=== PATIENT | male | born 2000 | race Caucasian/White ===

== ENCOUNTER 2024-06-04 09:26 | Day surgery (SDC) | payer SELFPAY ==
[2024-06-04] VITALS (14 sets, daily range): BP systolic 97–110; BP diastolic 50–71; PULSE 58–74; RESP 14–16; TEMP 36.2–36.8; O2SAT 94–100; BMI 23.0
--- NOTE | 2024-06-04 09:38 | PRE.ANES_ITS ---
ASA Classification* ASA Classification ASA Classification: 2 Assessment & Plan Anesthesia* Anesthesia Assessment Anesthesia Assessment: Discussed sedation and/or anesthesia options, risks, benefits, and alternatives with patient/parents/legal guardian/POA. Questions invited. The patient/parents/legal guardian/POA seems to understand and agrees to proceed with anesthesia plan. Reviewed the physical assessment, medical history, allergy history and patient home medications list prior to surgery/procedure/anesthetic and documented any changes. Performed airway and anesthesia risk assessments. 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 When Was Last Pacemaker Check QUESTION #4 FULL TEXT: You/Your Family Experience fever (hyperthermia) with Anesthesia Last Oral Intake Last Oral intake: Last Oral Intake NPO since Meds taken in AM with sips of water? Meds patient instructed to take am of surgery PONV PONV - accounts receivable specialist: PONV - accounts receivable specialist Female No 05/21/24 11:18 HX of Motion Sickness No 05/21/24 11:18 HX of N/V After Surgery No 05/21/24 11:18 Non-Smoker Yes 05/21/24 11:18 Duration of Surgery greater Yes 05/21/24 11:18 than 60 minutes Number of Risk Factors 2 05/21/24 11:18 PONV Score Moderate Risk 05/21/24 11:18 Height & Weight Height & Weight: Anesthesia: Height & Weight Height 5 ft 11 in 04/19/24 15:37 Respiratory Assessment Respiratory Assessment - accounts receivable specialist: Respiratory Tract Infection Hx - accounts receivable specialist Hx Respiratory Tract Infection No 05/21/24 11:18 STOP Sleep Apnea STOP Sleep Apnea - accounts receivable specialist: STOP Sleep Apnea - accounts receivable specialist Hx Hypertension No 05/21/24 11:18 Hx Sleep Apnea No 05/21/24 11:18 CPAP BIPAP Do you snore loudly (louder No 05/21/24 11:18 than talking or can be heard Do you often feel tired/ No 05/21/24 11:18 fatigued/ sleepy during daytime? Has anyone observed you stop No 05/21/24 11:18 breathing during sleep? STOP Results Negative 05/21/24 11:18 QUESTION #5 FULL TEXT : Do you snore loudly (louder than talking or can be heard through closed doors)? 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 Specify any problems Hx of Preganancy in last 3 N/A 05/21/24 11:18 Months Nurse Filling Out Transfusion DSCHRIBER 05/21/24 11:18 & Questions: Date: 05/21/24 05/21/24 11:18 Time: 11:20 05/21/24 11:18 Patient unable to answer at this time (ie. confused, unrespo /Reproduction History /Reproductive History - accounts receivable specialist: /Reproductive Hx- accounts receivable specialist Hx Now No 05/21/24 11:18 Gestational Age (in weeks): EDC: Hx Hx Para Hx Section SAB No 05/21/24 11:18 Active Medications Active Medications: Current Medications Generic Name Dose Route Start Last Admin Trade Name Freq PRN Reason Stop Dose Admin Cefazolin Sodium 2 gm/ N/A 20 mls @ 400 mls/hr 06/04/24 11:00 IV 06/04/24 11:02 PREOP ONE [facility] Medical History Loss of consciousness Constipation Non-smoker Leg cramps History of edema History of pain when walking Acute lateral meniscus tear of right knee Hx of head injury Home Medications ?Medication ?Instructions ?Recorded ?Last Taken ?Type NK 04/19/24 Unknown History Allergy/AdvReac Type Severity Reaction Status Date / Time No Known Allergies Allergy Verified 05/21/24 11:16 Social History Smoking Status: Never smoker alcohol intake: never Review of Systems (Anesthesia) ROS Narrative System reviewed and no additional complaints, except as documented.
[2024-06-04] MEDS: 0.9% Normal Saline (1000mL) 1,000 ML 15 ML IV (09:50)
--- NOTE | 2024-06-04 10:37 | HP.PCM_ITS ---
HPI - General HPI Narrative BO SINGLETON, is a 24 M who presents for a right knee arthroscopy, lateral meniscus repair, possible partial meniscectomy. No changes to history and physical exam. Right knee marked. Risks alternatives benefits postoperative instructions and narcotic counseling given. Patient understands no further questions or concerns. has a benign appearing prepatellar bursitis, but will no preclude surgery. was kneeling recently. MR#: [id number] Acct: [id number] Name: BO SINGLETON Rep #: [id number] : 2000 Provider: Dr. Estuardo Last MD Age/Sex: 24/M Location: [facility] [email or web address] Status: Signed Intake Vital Signs 04/19/2514:37 Height 5 ft 11 in Weight: 165 lb 4 oz BMI 23.0 Intake Visit Reasons: RIGHT KNEE Chief Complaint: injury 4 weeks ago, torn meniscus Is patient in pain?: Yes Pain scale (1-10): 7 Allergies No Known Allergies Allergy (Unverified 04/19/24 15:37) Medications ?Medication ?Instructions ?Recorded ?Confirmed ?Type NK 04/19/24 04/19/24 History PFSH Medical History (Updated 04/19/24 @ 16:01 by Estuardo Last MD) Acute lateral meniscus tear of right knee Hx of head injury Social History (Updated 04/19/24 @ 15:38 by Evelyne Pollack) Smoking Status: Never smoker alcohol intake: never HPI RIGHT KNEE Details: This documentation accurately reflects the service provided and the decisions made by me, Dr. Estuardo Last MD 04/19/24 [id number]. Part of today?s visit was documented by [ ], acting as scribe. BO SINGLETON is a 24 year old M here today for R knee injury. 4 weeks ago. was told LM tear. twisted. there was a pop. jumped down from 4 feet truss. swelling. pain underneath and lateral side. Patient has quite an active lifestyle well- managed and played hockey likes to play pickle ball. The recent hockey game really flared it up and cause more swelling. The patient feels like the knee has been giving way. There is mostly pain on the lateral side. Ortho Exam General General: Yes no acute distress Neurologic: Yes alert and Yes oriented x3 Psychologic: Yes reasonable and appropriate Right Knee Skin/Wound: Yes CDI, No erythema, No ecchymosis and Yes swelling 1+: Effusion Examination: No Med jt line tenderness, Yes Lat jt line tenderness, No TTP inf pole patella, No Crepitus, Yes Pain with flexion, Yes Monalisa's Test, No TTP Patellar tendon, No TTP Tibial tubercle, No TTP Pes Anserine and No Illiotibial band tenderness Quad Atrophy: No Stability: NML: Anterior Drawer, NML: Allen, NML: Posterior Drawer, NML: Valgus 0, NML: Valgus 30, NML: Varus 0, NML: Varus 30, NML: Dial 90 and NML: Dial 30 Patella Translation: 2 Apprehension with Lateral Translation: No Patellar Tilt Normal: Yes Patella Grind: No KNEE: NVI, normal gait, normal alignment, LJ line pain. nvi. rom 0-120. Left Knee Patella Translation: 2 Supplemental Info I independently reviewed the imaging. Concur with radiologist report. MRI report from 04/07/2024 radiologist impression moderate joint effusion and diffuse capsular edema/synovitis. Vertical tear/parrot-beak tear body of the lateral meniscus. Coding Level of Care Code Off vis,new,level 3 Diagnoses Acute lateral meniscus tear of right knee S83.281A Assessment and Plan Assessment and Plan (1) Acute lateral meniscus tear of right knee: Status: Acute Plan: 24-year-old man with an acute right knee lateral meniscus tear. I discussed the diagnosis prognosis different treatment options available with the patient including but not limited to rest ice anti-inflammatories nonoperative management doing nothing bracing taping strapping as well as surgical management which would be in the form of a right knee arthroscopy, lateral meniscus repair, possible partial meniscectomy. 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 I let the patient know that this would be 6 weeks with the brace and crutches in 3 to 4 months before returning back to heavy manual labor or other sports. The patient understands there is a risk of osteoarthritis long-term as well as further propagation or worsening of the tear without surgery. Patient understands signed the consent form for surgery and he would like a crowell pay option as well. Pros and cons risks and benefits were discussed with the patient including but not limited to infection, pain, stiffness, bleeding, damage to surrounding structures, neurovascular injury, recurrence or retear, failure or wear of hardware or fixation, instability, fracture, deep vein thrombosis and pulmonary embolism, anesthetic risks, , patient dissatisfaction, need for further s urgery and other risks. Patient understood and wished to proceed with surgery, and signed the informed consent documentation. [facility] Medical History Loss of consciousness Constipation Non-smoker Leg cramps History of edema History of pain when walking Acute lateral meniscus tear of right knee Hx of head injury Home Medications ?Medication ?Instructions ?Recorded ?Last Taken ?Type NK 04/19/24 Unknown History Allergy/AdvReac Type Severity Reaction Status Date / Time No Known Allergies Allergy Verified 06/04/24 10:13 Social History Smoking Status: Never smoker alcohol intake: never Vital Signs Vital Signs Vital Signs: 06/04/24 10:14 06/04/24 10:14 Temperature 98.0 F Temperature Source Temporal Pulse Rate 60 Respiratory Rate 16 Respiratory Pattern Normal Blood Pressure 110/66 Blood Pressure Mean 80 Blood Pressure Source Monitor Blood Pressure Position Semi-Fowlers Blood Pressure Location Left Arm Pulse Ox 100 Oxygen Delivery Method Room Air Weight Weight: 160 lb 7.944 oz Body Mass Index (BMI) 23.0
--- NOTE | 2024-06-04 10:37 | PCM.OPRPT ---
Problems Associated Problem List Diagnoses (1) Acute lateral meniscus tear of right knee: Operative Report (Standard) Operative Information RN Documented Start/Stop Times: Operation Date: 06/04/24 11:00 Case Time Into Pre-Op 06/04/24 09:45
[2024-06-04] MEDS: Cefazolin 2 GM in Syringe IV (11:14)
[2024-06-04] MEDS: Epinephrine (1 mg/ml) 1 MG/ML VIAL (11:34)
[2024-06-04] MEDS: Bupivacaine 0.25% 30 ML Vial (11:57)
--- NOTE | 2024-06-04 12:05 | PCM.OPRPT ---
Problems Associated Problem List Diagnoses (1) Acute lateral meniscus tear of right knee: Procedures Musculoskeletal [id number]-[id number]: Other Procedure See Report Operative Report (Standard) Operative Information Date of Procedure: 06/04/24 Pre-Operative Diagnosis: Right knee lateral meniscus tear Post-Operative Diagnosis: Same Surgery/Procedure Performed: Right knee arthroscopy partial lateral meniscectomy and lateral meniscus repair medical social worker: No Type of Anesthesia: General and Local RN Documented Start/Stop Times: Operation Date: 06/04/24 11:00 Case Time Into Pre-Op 06/04/24 09:45 Out of Pre-Op 06/04/24 11:01 Anesthesia Start 06/04/24 11:14 Into Room 06/04/24 11:14 Procedure Start 06/04/24 11:34 Procedure End 06/04/24 12:01 Procedure Start Time: 11:34 Procedure Stop Time: 12:01 Select all DRAINS/GRAFTS/IMPLANTS that apply: Implanted device Implanted device details: arthrex fiber stitch all inside meniscus implants x 2 Estimated Blood Loss: 25 Specimen collected: No Description of surgery: Patient brought to the operating room theater. Placed supine on the table. General anesthesia induced. 2 g IV Ancef administered prior to the start of the case. All bony prominences padded. SCDs on the legs. Tourniquet to the right thigh appropriately padded. Stress position with the patient's right side. Then prepped and draped in the usual sterile fashion with chlorhexidine-based prep solution allowing over 3 minutes drying time prior to draping. Preoperative timeout performed to confirm the site patient and the surgery. Began by elevating the limb inflated the tourniquet to 250 mmHg. Made a small stab incision over the anterior aspect of the knee to drain out what appeared to be a hemorrhagic bursitis. I then made anterolateral and anteromedial arthroscopy portals did a full diagnostic arthroscopy. Cartilage in all 3 compartments was normal. Normal ACL and PCL. Medial meniscus appeared normal stable to probing the meniscus roots on both sides were normal stable to probing. Lateral compartment - there was indeed complex parrot-beak tear with some vertical component in the mid aspect of the lateral meniscus. I used arthroscopic biters and shaver instruments to remove a flipped fragment from below the joint line. I debrided this to gentle smooth stable margins. There was increased mobility of the meniscus in that area more than what I would expect at the popliteal hiatus therefore elected to do a repair. I used meniscus rasp along the capsule. I then placed 2 vertical mattress all inside Arthrex fiber stitch meniscus repair devices just anterior and posterior to the segment of mobility. I then probed this section sutures were cut short, this was stable and solid to probing arthroscopy pictures taken and saved onto the system. Case terminated tourniquet let down and hemostasis achieved. Wounds cleaned with wet dry dressing. Portal sites closed with 3-0 Monocryl suture in the anterior stab incision left open because there is more drainage. Steri-Strips followed by Adaptic 4 x 4 gauze ABD dressing with Naseem wrap and a hinged knee brace locked in full extension was then placed. Patient woken up from the general anesthetic transferred off the operating table taken postanesthetic care unit in stable condition. All sponge needle instrument counts were correct no complications. Plan to the patient weightbearing as tolerated in full extension in the brace with crutches for for 6 weeks and passive range of motion only with physical therapy 0 to 90 degrees. Follow-up in the office in within 2 weeks time discharge home according to day surgery criteria and will use aspirin twice daily for VTE prophylaxis. CPT 92281, 39944 Surgical Findings: as above Complications Complications: No Admit VTE Documentation VTE Present on Admission: No VTE Mechan Device Prophylaxis: SCD's VTE Pharm Prophylaxis ordered?: Yes
--- NOTE | 2024-06-04 12:11 | DCINST_ITS ---
Discharge Instructions Diet Discharge Diet: No restrictions Activity Discharge Activity: Use Crutches Ice area for (Minutes): 10 Weight Bearing Status: Full weight bearing (only with brace fully straight 6 weeks) Keep extremity elevated above heart level: Operative Extremity Additional Activity Instructions:: ok for ankle pumps 4x/day Dressing / Incision Call your doctor if your incision/area has: Continuous Slow Oozing, Sudden Increased Bleeding, Increased Pain/ Swelling, Increased Redness, Foul Smelling Discharge and Swelling at the incision site Call your doctor if you observe: Fever of 101 or Higher, Coldness, Increased Pain and Numbness or Tingling Change Dressing in: leave in place till F/U Cleanse incision/area with: Do not get Incision Wet Follow Up Care Please Follow Up With: Estuardo Last MD When: within 2 weeks Test Results: Test results from this visit will be discussed in further detail at your follow- up appointment, if applicable. Discharge Plan Admission Attending Provider: Estuardo Last Primary Care Provider: Alex Barnard Instructions Patient Instructions: After Knee Arthroscopy Print Language: Togolese Discharge Orders/Prescriptions Prescriptions: New oxycodone-acetaminophen [Endocet] 5-325 mg tablet 1 tab PO Q4H MDD 6 PRN (Reason: pain) 3 Days Qty: 14 0RF aspirin 81 mg tablet,chewable 81 mg PO BID MDD 2 30 Days Qty: 60 0RF Referrals / Follow Up: Alex Barnard MD [Primary Care Provider] - Disposition Disposition (needs filled in before D/C Order can be placed): Home, Self Care
--- NOTE | 2024-06-04 12:15 | PCM.POST.ANE ---
Anesthesia: Postop Eval I Current Vital Signs Temperature: 98.2 F Pulse Rate: 65 Blood Pressure: 100/50 Respiratory Rate: 16 Pulse Ox: 96 Assessment Airway patent: Yes Spontaneous unlabored respirations: Yes nausea: No Vomiting: No Anesthesia Complication: No Fluid Hydration Crystalloid volume administer (ml): 1,200 Total IV fluid infused: 1,200 Progress Note Anesthesia document: Postop Eval 1 completed: Yes
--- NOTE | 2024-06-04 14:51 | POSTOPAN2_ITS ---
Anesthesia Postop Eval I Sum Postop Eval Completion status Anesthesia document: Postop Eval 1 completed: Yes Anesthesia Postop Eval I Summary Anesthesia Postop Eval I Summary: Anesthesia Postop Eval I: Assessment Summary Airway patent Yes 06/04/24 12:15 [email or web address] [email or web address] Spontaneous unlabored Yes 06/04/24 12:15 KITCHEN [email or web address] respirations Mental status nausea No 06/04/24 12:15 KITCHEN [email or web address] Vomiting No 06/04/24 12:15 [email or web address] [email or web address] Anesthesia Postop Eval I: Fluid Summary Crystalloid volume administer 1,200 06/04/24 12:15 [email or web address] [email or web address] (ml) Colloids volume administered ( ml) Blood Product volume administered (ml) Total IV fluid infused 1,200 06/04/24 12:15 KITCHEN [email or web address] Anesthesia Postop Eval I: Summary Notes Anesthesia Complication No 06/04/24 12:15 [email or web address] [email or web address] Anesthesia Complication Comment: Post-operative progress note Anesthesia: Postop Eval II Evaluation Mental status: Awake Pain Level: 0 nausea: No Vomiting: No
--- NOTE | 2024-06-04 14:51 | PCM.POSTANE2 ---
Anesthesia Postop Eval I Sum Postop Eval Completion status Anesthesia document: Postop Eval 1 completed: Yes Anesthesia Postop Eval I Summary Anesthesia Postop Eval I Summary: Anesthesia Postop Eval I: Assessment Summary Airway patent Yes 06/04/24 12:15 WORK FROM HOME.[email or web address] Spontaneous unlabored Yes 06/04/24 12:15 WORK FROM HOME.[email or web address] respirations Mental status nausea No 06/04/24 12:15 WORK FROM HOME.[email or web address] Vomiting No 06/04/24 12:15 WORK FROM HOME.[email or web address] Anesthesia Postop Eval I: Fluid Summary Crystalloid volume administer 1,200 06/04/24 12:15 WORK FROM HOME.[email or web address] (ml) Colloids volume administered ( ml) Blood Product volume administered (ml) Total IV fluid infused 1,200 06/04/24 12:15 WORK FROM HOME.[email or web address] Anesthesia Postop Eval I: Summary Notes Anesthesia Complication No 06/04/24 12:15 WORK FROM HOME.[email or web address] Anesthesia Complication Comment: Post-operative progress note Anesthesia: Postop Eval II Evaluation Mental status: Awake Pain Level: 0 nausea: No Vomiting: No
[2024-06-04] MEDS: HYDROcodone Bitartrate/Apap 5/325 Tablet PO (15:41)
--- NOTE | 2024-06-04 17:48 | SUR.PHASEII ---
time in phase 2 extended d/t waiting for ride
== END 2024-06-04 17:48 | disposition home or self-care (01) ==
LOC: SDC 09:33 → AC 09:39
PROVIDERS: PCP Family Medicine; Referring Provider Orthopaedic Surgery Sports Medicine; Visit Provider Orthopaedic Surgery Sports Medicine
PROC: (CPT 29870; principal; 2024-06-04 10:40)
DX: S83.281A Other tear of lateral meniscus, current injury, right knee, initial encounter (principal); X58.XXXA Exposure to other specified factors, initial encounter
CPT/HCPCS: 29881; 29882; 01400; A4216; J2405